=== PATIENT | female | born 1955 | race Caucasian/White ===

== ENCOUNTER → 2019-02-03 | Outpatient (CLI) | payer OTHER ==
--- NOTE | 2019-02-03 12:01 | PCVCIMAG ---
APPROVED REPORT Study performed: 02/03/2019 11:08:59 EXAM: Comprehensive 2D, Doppler, and color-flow Echocardiogram Patient Location: Bedside Status: routine BSA: 1.67 HR: 75 bpmBP: 130/80 mmHg Rhythm: NSR Other Information Study Quality: Adequate Risk Factors: Cardiac Risk Factors: Hyperlipidemia, HTN, Smoking Indications Chest Pain 2D Dimensions IVSd: 8.22 (7-11mm)LVOT Diam: 19.00 (18-24mm) LVDd: 44.75 mm PWd: 8.64 (7-11mm)Ascending Ao: 29.85 (22-36mm) LVDs: 29.51 (25-40mm) Left Atrium: 35.84 (27-40mm) Aortic Root: 26.66 mm LV Single Plane 4CH: 64.70 % LV Single Plane 2CH: 72.34 % Biplane EF: 68.3 % Volumes Left Atrial Volume (Systole) Single Plane 4CH: 27.39 mLSingle Plane 2CH: 30.21 mL LA ESV Index: 20.00 mL/m2 Aortic Valve AoV Peak Nikko.: 1.23 m/s AO Peak Gr.: 6.04 mmHgLVOT Max P.55 mmHg LVOT Max V: 0.94 m/s SILVANO Vmax: 2.09 cm2 Mitral Valve E/A Ratio: 1.1 MV Decel. Time: 212.11 ms MV E Max Nikko.: 1.05 m/s MV A Nikko.: 0.92 m/s IVRT: 62.28 ms Pulmonary Valve PV Peak Nikko.: 0.83 m/sPV Peak Gr.: 2.73 mmHg Pulmonary Vein P Vein S: 0.75 m/sP Vein A: 0.49 m/s P Vein D: 0.46 m/sP Vein A Dur.: 79.6 msec P Vein S/D Ratio: 1.63 Tricuspid Valve TR Peak Nikko.: 1.94 m/sRAP Estimate: 7.00 mmHg TR Peak Gr.: 15.04 mmHg PA Pressure: 22.00 mmHg Left Ventricle The left ventricle is normal size. There is normal LV segmental wall motion. There is normal left ventricular wall thickness. Left ventricular systolic function is normal. The left ventricular ejection fraction is within the normal range. LVEF is 65-70%. Right Ventricle The right ventricle is normal size. The right ventricular systolic function is normal. Atria The left atrium size is normal. The right atrium size is normal. Aortic Valve The aortic valve is normal in structure. No aortic regurgitation is present. There is no aortic valvular stenosis. Mitral Valve The mitral valve is normal in structure. Trace mitral regurgitation. No evidence of mitral valve stenosis. Tricuspid Valve The tricuspid valve is normal in structure. Trace tricuspid regurgitation. Pulmonary artery pressure is 22 mmHg. Pulmonic Valve The pulmonary valve is normal in structure. Trace pulmonic regurgitation. Great Vessels The aortic root is normal in size. The ascending aorta is normal in size. IVC is normal in size and collapses >50% with inspiration. Pericardium There is no pericardial effusion. <Conclusion> The left ventricle is normal size. There is normal left ventricular wall thickness. Left ventricular systolic function is normal. The right ventricle is normal size. The left atrium size is normal. The right atrium size is normal. The aortic valve is normal in structure. Trace mitral regurgitation. Trace tricuspid regurgitation. Pulmonary artery pressure is 22 mmHg.
== END | disposition home or self-care (01) ==
LOC: PCVCIMAG 11:08
PROVIDERS: ATTEND Internal Medicine Cardiovascular Disease
DX: R07.9 Chest pain, unspecified (principal); I10 Essential (primary) hypertension; E78.00 Pure hypercholesterolemia, unspecified; Z72.0 Tobacco use; Z88.0 Allergy status to penicillin
CPT/HCPCS: 93306